=== PATIENT | female | born 1950 | race Caucasian/White ===

== ENCOUNTER 2020-08-18 23:46 | Outpatient (CLI) | payer MEDICARE | END 2020-08-18 23:47 | disposition critical access hospital (66) | LOC: EMS 23:46 | DX: K92.0 Hematemesis (principal); R19.7 Diarrhea, unspecified; R53.1 Weakness | CPT/HCPCS: A0425; A0427 ==

== ENCOUNTER 2020-08-19 00:11 | Inpatient (IN) | payer MEDICARE ==
[2020-08-19] MEDS ORDERED: TRANEXAMIC ACID 1,000 MG in SODIUM CHLORIDE 0.9% 100ML 100 ML IV STA (00:27)
[2020-08-19] MEDS ORDERED: TRANEXAMIC ACID 1,000 MG/10 ML VIAL ONE (00:34)
[2020-08-19 00:53] LABS: BASOPHILS % (AUTO) 0.2 %; EOSINOPHILS % (AUTO) 0.1 %; LYMPHOCYTES # (AUTO) 1.3 10^3/uL (1.5-3.5); LYMPHOCYTES % (AUTO) 7.3 %; MEAN CORPUSCULAR HEMOGLOBIN 31.8 pg (27.0-31.0); MEAN CORPUSCULAR VOLUME 106.1 fL (81.0-99.0); MEAN PLATELET VOLUME 8.9 fL (7.9-10.8); MONOCYTES # (AUTO) 1.2 10^3/uL (0.0-1.0); MONOCYTES % (AUTO) 6.8 %; NEUTROPHILS # (AUTO) 14.4 10^3/uL (1.5-6.6); NEUTROPHILS % (AUTO) 83.6 %; PLT - PLATELET COUNT 430 10^3/uL (130-450); RED BLOOD COUNT 1.32 10^6/uL (4.20-5.40); RED CELL DISTRIBUTION WIDTH 14.5 % (12.0-15.0); WHITE BLOOD COUNT 17.2 x10^3/uL (4.8-10.8)
[2020-08-19 01:04] LABS: ALBUMIN 2.8 g/dL (3.2-5.5); ALBUMIN/GLOBULIN RATIO 1.1 (1.0-2.2); BILIRUBIN,TOTAL 0.6 mg/dL (0.2-1.0); CALCIUM 9.1 mg/dL (8.5-10.3); CREATININE 0.9 mg/dL (0.4-1.0); POTASSIUM 3.6 mmol/L (3.5-5.0); TOTAL PROTEIN 5.3 g/dL (6.7-8.2)
[2020-08-19 01:39] LABS: HGB - HEMOGLOBIN 4.2 g/dL (12.0-16.0)
--- NOTE | 2020-08-19 01:41 | ED Physician Documentation ---
PD HPI NVD - Stated complaint Stated Complaint: N/V/D - Chief complaint Chief Complaint: Abd Pain - History obtained from History obtained from: Patient, EMS - History of Present Illness Timing - onset: How many days ago (2) Timing - duration: Days (2) Timing - details: Gradual onset, Still present Associated symptoms: Near syncope / syncope, Other (diarrhea and vomiting) Contributing factors: Travel, Anticoagulated. No: Recent antibiotics, Alcohol use Improved by: Vomiting, BM Worsened by: Moving Similar symptoms before: Has not had sx before Recently seen: Not recently seen - Additonal information Additional information: 69-year-old female with a history of ulcerative colitis who is on Eliquis for DVT has developed some diarrhea over the past 2 days and today she developed some vomiting and the vomiting this evening appeared to have coffee grounds in it and there appears to be dark diarrhea as well. The patient has developed near syncope and was transported from the home she is visiting by ambulance and IV line was begun and she was given 500 mL of saline with improvement of her blood pressure from 70 over palp to 100. Review of Systems Constitutional: denies: Fever Eyes: denies: Decreased vision Ears: denies: Ear pain Nose: denies: Congestion Throat: denies: Sore throat Cardiac: denies: Chest pain / pressure, Palpitations Respiratory: denies: Dyspnea, Cough GI: reports: Abdominal Pain, Nausea, Vomiting, Diarrhea : denies: Dysuria, Frequency Skin: denies: Rash Musculoskeletal: denies: Neck pain, Back pain, Extremity pain Neurologic: reports: Generalized weakness, Near syncope. denies: Focal weakness, Numbness PD PAST MEDICAL HISTORY - Present Medications Home Medications: Ambulatory Orders Medication Instructions Recorded Confirmed ALPRAZolam [Alprazolam] 0.5 mg PO PRN 08/19/20 Apixaban [Eliquis] 5 mg PO BID 08/19/20 08/19/20 Ascorbic Acid [Vitamin C] 1,000 mg PO DAILY 08/19/20 08/19/20 Atorvastatin Calcium 1 tab PO DAILY 08/19/20 08/19/20 Ergocalciferol (Vitamin D2) 25 mcg PO 08/19/20 [Vitamin D2] Ferrous Sulfate 325 mg PO DAILY 08/19/20 08/19/20 Hydrochlorothiazide 12.5 mg PO DAILY 08/19/20 08/19/20 Liothyronine [Cytomel] 25 mcg PO QDAC 08/19/20 08/19/20 Melatonin 10 mg PO HS 08/19/20 08/19/20 Mesalamine [Lialda] 3.6 gm PO DAILY 08/19/20 08/19/20 Prednisone 10 mg PO 08/19/20 Sertraline HCl 100 mg PO 08/19/20 - Allergies Allergies/Adverse Reactions: Allergies Allergy/AdvReac Type Severity Reaction Status Date / Time No Known Drug Allergies Allergy Verified 08/19/20 00:26 PD ED PE NORMAL - Vitals Vital signs reviewed: Yes (Tachycardic) - General General: Alert and oriented X 3, No acute distress, Well developed/nourished, Other (Pale appearing female who is now interactive and oriented) - HEENT HEENT: Atraumatic, PERRL - Neck Neck: Supple, no meningeal sign, No bony TTP - Cardiac Cardiac: No murmur, Other (Tacky to 120 sitting up) - Respiratory Respiratory: No respiratory distress, Clear bilaterally - Abdomen Abdomen: Normal bowel sounds, Soft, Non distended, No organomegaly, Other (Mild generalized tenderness without guarding or rebound) - Back Back: No CVA TTP, No spinal TTP - Derm Derm: Warm and dry, No rash, Other (Pale skin) - Extremities Extremities: No deformity, No edema - Neuro Neuro: Alert and oriented X 3, first calender 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 2-12 intact, No motor deficit, No sensory deficit, Normal speech Eye Opening: Spontaneous Motor: Obeys Commands Verbal: Oriented GCS Score: 15 - Psych Psych: Normal mood, Normal affect Results - Vitals Vitals: Vital Signs - 24 hr 08/19/20 08/19/20 08/19/20 00:17 00:22 01:43 Temperature 37.7 C 37.7 C 37 C Heart Rate 110 H 110 H 130 H Respiratory 18 18 20 Rate Blood Pressure 107/67 107/67 93/52 L O2 Saturation 100 100 08/19/20 08/19/20 08/19/20 02:00 02:05 02:16 Temperature 36.8 C 36.8 C 36.8 C Heart Rate 111 H 111 H 113 H Respiratory 20 20 18 Rate Blood Pressure 111/61 111/61 115/58 L O2 Saturation 08/19/20 08/19/20 08/19/20 02:22 02:31 03:01 Temperature 36.8 C 36.8 C 36.8 C Heart Rate 111 H 107 H 107 H Respiratory 18 20 20 Rate Blood Pressure 115/58 L 124/64 120/71 O2 Saturation 100 08/19/20 03:22 Temperature 36.7 C Heart Rate 105 H Respiratory 16 Rate Blood Pressure 124/62 O2 Saturation Oxygen O2 Source Room air - Labs Labs: Laboratory Tests 08/19/20 08/19/20 08/19/20 00:44 00:44 00:44 WBC 17.2 H RBC 1.32 L Hgb 4.2 L* Hct 14.0 L* MCV 106.1 H MCH 31.8 H MCHC 30.0 L RDW 14.5 Plt Count 430 MPV 8.9 Neut # (Auto) 14.4 H Lymph # (Auto) 1.3 L [place] # (Auto) 1.2 H Eos # (Auto) 0.0 Baso # (Auto) 0.0 Absolute Nucleated RBC 0.00 Nucleated RBC % 0.0 Sodium 135 Potassium 3.6 Chloride 101 Carbon Dioxide 19 L Anion Gap 15.0 H BUN 38 H Creatinine 0.9 Estimated GFR (MDRD) 62 L Glucose 210 H Calcium 9.1 Total Bilirubin 0.6 AST 15 ALT 17 Alkaline Phosphatase 45 Total Protein 5.3 L Albumin 2.8 L Globulin 2.5 Albumin/Globulin Ratio 1.1 Lipase 25 Blood Type O NEGATIVE Blood Type Recheck Antibody Screen NEGATIVE Crossmatch IS Only See Detail 08/19/20 01:13 WBC RBC Hgb Hct MCV MCH MCHC RDW Plt Count MPV Neut # (Auto) Lymph # (Auto) [place] # (Auto) Eos # (Auto) Baso # (Auto) Absolute Nucleated RBC Nucleated RBC % Sodium Potassium Chloride Carbon Dioxide Anion Gap BUN Creatinine Estimated GFR (MDRD) Glucose Calcium Total Bilirubin AST ALT Alkaline Phosphatase Total Protein Albumin Globulin Albumin/Globulin Ratio Lipase Blood Type Blood Type Recheck O NEGATIVE Antibody Screen Crossmatch IS Only Procedures - IVC sono (time) 0224 Bedside IVC sono: IVC measures (cm) (0.92), Dehydration (est 2 liter deficit) PD MEDICAL DECISION MAKING - ED course Complexity details: reviewed results, re-evaluated patient, considered differential, d/w patient ED course: 69-year-old female with acute GI bleeding arrives to the emergency department in critical condition with tachycardia and hypotension and she has some fluid resuscitation provided and while we are waiting blood her fluids are turned off. She maintains a blood pressure of 113 systolic. She is given a gram of tranexamic acid. As soon as blood was available the patient was administered 2 units simultaneously. She has improvement in color, blood pressure, pulse and interaction. Dr. Valdez general surgery is consulted by phone and will see the patient in consult in the am with likely scoping the following day. Dr. Martinez hospitalist is consulted in the case. - Critical Care Time(min): 44 Comments: Critical care performed on this patient required interruption of all other duties in the emergency department for bedside evaluation and treatment in a time sensitive manner. Time Includes: Direct patient care, Reassess patient, Document care, Coordinate care, Medical consult Data interpretation: Labs, Pulse ox, CXR Departure - Departure Disposition: 66 [facility] DC/Xfer Clinical Impression: Upper GI bleeding
[2020-08-19] MEDS ORDERED: PANTOPRAZOLE 40 MG VIAL IVP STA (02:33)
[2020-08-19] MEDS ORDERED: SODIUM CHLORIDE FLUSH 0.9% 10 ML SYRINGE IVP PRN (03:04)
[2020-08-19] MEDS ORDERED: ACETAMINOPHEN 325 MG TABLET PO PRN (03:04)
[2020-08-19] MEDS ORDERED: ONDANSETRON 4 MG/2 ML VIAL IVP PRN (03:04)
[2020-08-19] MEDS ORDERED: LORazepam 0.5 MG TABLET PO PRN (03:13)
--- NOTE | 2020-08-19 03:21 | HISTORY & PHYSICAL EXAMINATION ---
Chief Complaint - Chief Complaint Chief Complaint: Vomiting with coffee grounds, diarrhea with black stools History of Present Illness - Admitted From Admitted From:: ED - History Obtained From Records Reviewed: ED History obtained from: Patient and ED Physician Exam Limitations: None - History of Present Illness HPI Comment/Other: Patient is a 69-year-old female with a past medical history of ulcerative colitis, diagnosed fall 2019, DVT diagnosed fall 2019 during hospitalization related to ulcerative colitis, hypertension, hyperlipidemia, depression and generalized anxiety disorder who presents to the emergency department with a 2- day history of vomiting and diarrhea with coffee-ground emesis and dark tarry stools. In addition, she has been having mild to moderate cramping of the left lower quadrant. Patient states that she had a shayan prior to all this starting but other than that cannot think of anything that incited this episode. She is not a heavy drinker, has no prior history of GI bleed that she is aware of. And most recently was scoped in fall 2019 when she was hospitalized in [place] for this new diagnosis of ulcerative colitis. She is here visiting from [facility], visiting her mother and sisters who have home and [facility]. She started to have significant fati maricruz and weakness after the 2 days of vomiting and diarrhea so paramedics were called and she was brought to the hospital.In route she was found to be significantly hypotensive and received a 500 mL bolus improving her blood pressure from systolic of 70 over palp to 100 systolic. ED course: Upon arrival in the ED, she was only given a 500 mL bolus in an attempt to avoid worsening the bleeding with hypertension, she was given a 1 g dose of tranexamic acid. Initially heart rates were as high as 130s with blood pressures in the 90s over 60s, but transfusion was initiated eventually receiving 2 units simultaneously in both arms which helped to improve tachycardia with heart rates now in the 100-110 range. Blood pressure improved to the 115's/80 range. Patient has become more alert, and with the exception of feeling fatigued and mild left lower quadrant cramping is doing much better. General surgery was contacted by ED physician who has agreed to consult, Dr. Valdez plans to take the patient for EGD likely on Thursday morning. History - Past Medical History Cardiovascular: reports: Hypertension, High cholesterol, Deep vein thrombosis, Other. denies: Pulmonary embolism Respiratory: reports: None Neuro: reports: None GI: reports: Ulcerative colitis. 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 Living arrangement: At home Living Situation: Alone Social History Notes: Patient is here visiting from [facility] her mother and 2 sisters live on [facility] - Substance History Use: Uses substance without health or social issues: NONE - POLST Patient has POLST: No POLST Status: DNR Meds/Allgy - Home Medications Home Medications: Ambulatory Orders Medication Instructions Recorded Confirmed ALPRAZolam [Alprazolam] 0.5 mg PO PRN 08/19/20 Apixaban [Eliquis] 5 mg PO BID 08/19/20 08/19/20 Ascorbic Acid [Vitamin C] 1,000 mg PO DAILY 08/19/20 08/19/20 Atorvastatin Calcium 1 tab PO DAILY 08/19/20 08/19/20 Ergocalciferol (Vitamin D2) 25 mcg PO 08/19/20 [Vitamin D2] Ferrous Sulfate 325 mg PO DAILY 08/19/20 08/19/20 Hydrochlorothiazide 12.5 mg PO DAILY 08/19/20 08/19/20 Liothyronine [Cytomel] 25 mcg PO QDAC 08/19/20 08/19/20 Melatonin 10 mg PO HS 08/19/20 08/19/20 Mesalamine [Lialda] 3.6 gm PO DAILY 08/19/20 08/19/20 Prednisone 10 mg PO 08/19/20 Sertraline HCl 100 mg PO 08/19/20 - Allergies Allergies/Adverse Reactions: Allergies Allergy/AdvReac Type Severity Reaction Status Date / Time No Known Drug Allergies Allergy Verified 08/19/20 00:26 Review of Systems - Constitutional Constitutional: reports: Fatigue, Malaise, Weakness, Poor appetite. denies: Fever, Chills, Diaphoresis - Cardiovascular Cariovascular: reports: Lightheadedness. denies: Irregular heart rate, Chest pain - Gastrointestinal Gastrointestinal: reports: Abdominal pain, Diarrhea, Change in bowel habits, Black stools, Nausea, Vomiting, Coffee grounds emesis. denies: Abdominal distention, Constipation, Bloody stools, Bile emesis, Leo blood emesis - Hematologic/Lymphatic Hematologic/Lymphatic: reports: Anemia, Blood clots - All Other Systems All Other Systems: reports: Reviewed and negative Prior Level of Functionality: Fully Independent Exam - Vital Signs Reviewed Vital Signs: Yes Vital Signs: Vital Signs x48h Temp Pulse Resp BP Pulse Ox 08/19/20 03:01 36.8 C 107 H 20 120/71 08/19/20 02:31 36.8 C 107 H 20 124/64 08/19/20 02:22 36.8 C 111 H 18 115/58 L 100 08/19/20 02:16 36.8 C 113 H 18 115/58 L 08/19/20 02:05 36.8 C 111 H 20 111/61 08/19/20 02:00 36.8 C 111 H 20 111/61 08/19/20 01:43 37 C 130 H 20 93/52 L 08/19/20 00:22 37.7 C 110 H 18 107/67 100 08/19/20 00:17 37.7 C 110 H 18 107/67 100 - Physical Exam General Appearance: positive: No acute distress, Alert Eyes Bilateral: positive: Normal inspection, No scleral icterus Neck: positive: Nml inspection, Thyroid nml, No JVD Respiratory: positive: Chest non-tender Cardiovascular: positive: Regular rate & rhythm, No murmur, No gallop. negative: Irregularly irregular, Extrasystoles, Tachycardia Abdomen: positive: Non-tender, No organomegaly, Nml bowel sounds Skin: positive: No rash, Warm, Dry, Pallor. negative: Cyanosis, Diaphoresis Extremities: positive: Non-tender, Nml appearance, No pedal edema Neurologic/Psychiatric: positive: Oriented x3, CN's nml (2-12), Motor nml, Sensation nml Conclusion/Plan - Problem List (1) Upper GI bleeding Conclusion/Plan: Patient initially presented to ED in critical condition with hypotension, tachycardia, and severe anemia with hemoglobin 4.2 hematocrit 14.0 Risk is further exacerbated by the patient taking EliquisPrior to admission Stabilized with t acid, 0.5 L bolus, and transfusion 2 units simultaneously Vital signs improved but still mildly tachycardic with heart rates in the 100- 110 range Blood pressure is improved Patient is alert, pallor is improved, and is responding to resuscitation well General surgery consulted, Dr. Valdez assistance greatly appreciated We will admit patient to [facility] Repeat H&H posttransfusion Pending results, monitor serial hemoglobin hematocrit levels Holding anticoagulation Protonix IV BID Full liquid diet for now pending EGD on Thursday then n.p.o. tomorrow night (2) Acute blood loss anemia (ABLA) Conclusion/Plan: As above Monitor hemoglobin hematocrit levels Patient has history of iron deficiency anemia Resume home iron Check iron study in the a.m. Transfuse to maintain hemoglobin greater than 7 (3) Ulcerative colitis Conclusion/Plan: Patient with recently diagnosed UC in fall 2019 Current presentation likely an acute exacerbation Has recently had a flare with prednisone taper at home Will start IV Solu-Medrol 60 mg daily Pending clinical course, if clinically deteriorates may need to be transferred to facility with gastroenterology consultation but otherwise given that she is stable now, would be appropriate to start first-line therapy and pursue GI bleed with general surgery performing EGD Continue home mesalamine Continue Protonix IV twice daily Qualifiers: Digestive disease complication type: other complication (4) Hypertension Conclusion/Plan: Blood pressure soft secondary to GI bleed Hold home hydrochlorothiazide Monitor blood pressures Once bleeding stops, H&H stable, if blood pressure increases then resume home hydrochlorothiazide (5) Hyperlipidemia Conclusion/Plan: Hold home statin pending clinical course given low blood pressures, to avoid any unnecessary stress to liver Resume home statin when stable (6) Hypothyroid Conclusion/Plan: Resume home Cytomel (7) Depression Conclusion/Plan: Stable Resume home Zoloft Resume home Ativan 0.5 mg as needed but used cautiously given recent soft blood pressures and avoid when possible (8) Anxiety Conclusion/Plan: As above, as needed Ativan to be used sparingly given soft blood pressures - Lab Results Lab results reviewed: Yes Errol Bones: 08/19/20 00:44 08/19/20 00:44 Core Measures - Anticipated LOS I expect patient to be DC'd or transferred within 96 hours.: Yes - DVT/VTE - Prophylaxis VTE/DVT Device ordered at admit?: Yes VTE/DVT Prophylaxis med ordered at admit?: No Not Ordered - Medical Reason: Contraindicated
[2020-08-19] MEDS: methylPREDNISolone SUCCINATE 40 MG/ML VIAL IVP SCH ×2 (03:32→08:39)
[2020-08-19 04:20] LABS: B. PARAPERTUSSIS- RESP PCR PAN NOT DETECTED; B. PERTUSSIS- RESP PCR PANEL NOT DETECTED; C. PNEUMONIAE- RESP PCR PANEL NOT DETECTED; CORONAVIRUS 229E-RESP PCR NOT DETECTED; CORONAVIRUS HKU1-RESP PCR NOT DETECTED; CORONAVIRUS NL63-RESP PCR NOT DETECTED; CORONAVIRUS OC43-RESP PCR NOT DETECTED; HUMAN METAPNEUMOVIRUS NOT DETECTED; INFLUENZA A- RESP PCR PANEL NOT DETECTED; INFLUENZA B - RESP PCR PANEL NOT DETECTED; M. PNEUMONIAE- RESP PCR PANEL NOT DETECTED; PARAINFLUENZA VIRUS 1 NOT DETECTED; PARAINFLUENZA VIRUS 2 NOT DETECTED; PARAINFLUENZA VIRUS 3 NOT DETECTED; PARAINFLUENZA VIRUS 4 NOT DETECTED; RHINOVIRUS/ENTEROVIRUS NOT DETECTED; RSV- RESP PCR PANEL NOT DETECTED; SARS-CoV-2 -RESP PCR PANEL NOT DETECTED
[2020-08-19] MEDS: HYDROcod/ACETAM 5/325 MG TABLET PO PRN ×4 (04:57→23:50)
[2020-08-19 05:20] LABS: ABSOLUTE RETICS # AUTO 0.168 10^6/uL (0.020-0.110); HCT - HEMATOCRIT 20.4 % (37.0-47.0); MEAN CORPUSCULAR HEMOGLOBIN 31.8 pg (27.0-31.0); MEAN CORPUSCULAR HGB CONC 33.8 g/dL (32.0-36.0); RED BLOOD COUNT 2.17 10^6/uL (4.20-5.40); RED CELL DISTRIBUTION WIDTH 17.9 % (12.0-15.0); RETICULOCYTE COUNT % (AUTO) 7.75 % (0.5-2.3); WHITE BLOOD COUNT 16.8 x10^3/uL (4.8-10.8)
[2020-08-19 05:22] LABS: HGB - HEMOGLOBIN 6.9 g/dL (12.0-16.0)
[2020-08-19 05:44] LABS: CALCIUM 8.6 mg/dL (8.5-10.3); CREATININE 0.7 mg/dL (0.4-1.0); CRP - C-REACTIVE PROTEIN 5.1 mg/dL (0-1.0); POTASSIUM 3.6 mmol/L (3.5-5.0)
[2020-08-19 05:58] LABS: FERRITIN 191.8 ng/mL (11.0-306.8)
[2020-08-19] MEDS: SODIUM CHLORIDE 0.9% 1,000 ML IV SCH ×2 (06:17→20:26)
[2020-08-19] MEDS ORDERED: LIOTHYRONINE 5 MCG TABLET PO SCH (07:00)
[2020-08-19] MEDS ORDERED: LIOTHYRONINE 25 MCG TABLET PO SCH (07:00)
--- NOTE | 2020-08-19 08:00 | PHARMACY PROGRESS NOTE ---
- Best Possible Medication History Admit Date and Time: 08/19/20 0304 Processed by: Pharmacy Medication History completed: Yes Secondary Source(s): Prescription bottles, Insurance records Medication list updated using medication bottles patient brought to the hospital along with insurance records to confirm fill history. As the person ultimately responsible for medication therapy, providers are able to order a medication from an existing home medication list in [facility] via the "Reconcile Routine" prior to Confirmation of that medication by pit crew support worker. Such practice is discouraged except when the physician, in their clinical judgment, deems that a medical need exists for a medication without regard to previous use.
--- NOTE | 2020-08-19 08:26 | PROVIDER PROGRESS NOTE ---
Hospitalist Cross-cover Note - Cross-Cover Note Cross-Cover Note: Patient was resting comfortably at the time of my exam. She denied any more episodes of emesis or blood in stool. However she reported abdominal cramps. Her vitals had significantly improved and remained stable. Repeat CBC showed a hemoglobin of 6.4. A 3rd unit of packed red blood cells was ordered She is on methylprednisolone and mesalamine. She was seen by Dr. Valdez with general surgery EGD planned for tomorrow afternoon.
[2020-08-19] MEDS: FERROUS SULFATE 325 MG TABLET PO SCH (08:34)
[2020-08-19] MEDS: SERTRALINE 50 MG TABLET PO SCH (08:34)
[2020-08-19] MEDS: SODIUM CHLORIDE FLUSH 0.9% 10 ML SYRINGE IVP SCH ×2 (08:39→16:10)
[2020-08-19] MEDS ORDERED: LEVOTHYROXINE 75 MCG TABLET PO SCH (09:00)
[2020-08-19] MEDS ORDERED: LEVOTHYROXINE 100 MCG TABLET PO SCH (09:00)
[2020-08-19] MEDS: PANTOPRAZOLE 40 MG VIAL IVP SCH ×2 (09:51→21:48)
[2020-08-19] MEDS: MESALAMINE 1.2 GM PO SCH ×3 (09:58→21:48)
[2020-08-19 10:27] LABS: MEAN CORPUSCULAR HEMOGLOBIN 31.5 pg (27.0-31.0); MEAN CORPUSCULAR HGB CONC 32.5 g/dL (32.0-36.0); MEAN PLATELET VOLUME 9.1 fL (7.9-10.8); RED BLOOD COUNT 2.03 10^6/uL (4.20-5.40); RED CELL DISTRIBUTION WIDTH 19.5 % (12.0-15.0); WHITE BLOOD COUNT 15.1 x10^3/uL (4.8-10.8)
[2020-08-19 10:36] LABS: HCT - HEMATOCRIT 19.7 % (37.0-47.0); HGB - HEMOGLOBIN 6.4 g/dL (12.0-16.0)
[2020-08-19] MEDS: LEVOTHYROXINE 100 MCG TABLET PO SCH (11:16)
[2020-08-19] MEDS: LEVOTHYROXINE 75 MCG TABLET PO SCH (11:16)
--- NOTE | 2020-08-19 13:58 | HISTORY & PHYSICAL EXAMINATION ---
Chief Complaint - Chief Complaint Chief Complaint: emesis, weak, and faint yesterday History of Present Illness - Admitted From Admitted From:: ED - History Obtained From Records Reviewed: yes History obtained from: pt Exam Limitations: none - History of Present Illness HPI Comment/Other: She was diagnosed with ulcer colitis last year. She was having loose non bloody bms and was weak. She has history of dvt and takes anticoagulation as well as prednisone for her ulcerative colitis. She denies abdominal pain. She was not taking antacids. Yesterday she had brown emesis and was found to be severely anemic. She is improved after transfusion; however, still feels very weak. 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 Living arrangement: At home Living Situation: Alone Social History Notes: Patient is here visiting from [facility] her mother and 2 sisters live on [facility] - Substance History Use: Uses substance without health or social issues: NONE - POLST Patient has POLST: No POLST Status: DNR Meds/Allgy - Home Medications Home Medications: Ambulatory Orders Medication Instructions Recorded Confirmed ALPRAZolam [Alprazolam] 0.25 - 0.5 mg PO QPM PRN 08/19/20 08/19/20 Apixaban [Eliquis] 5 mg PO BID 08/19/20 08/19/20 Ascorbic Acid [Vitamin C] 1,000 mg PO DAILY 08/19/20 08/19/20 Atorvastatin Calcium 40 mg PO DAILY 08/19/20 08/19/20 Cholecalciferol [Vitamin D3] 25 mcg PO DAILY 08/19/20 08/19/20 Ferrous Sulfate 325 mg PO DAILY 08/19/20 08/19/20 Hydrochlorothiazide 12.5 mg PO DAILY 08/19/20 08/19/20 Levothyroxine Sodium [Euthyrox] 175 mcg PO DAILY 08/19/20 08/19/20 Liothyronine [Cytomel] 12.5 mcg PO QDAC 08/19/20 08/19/20 Melatonin 10 mg PO HS 08/19/20 08/19/20 Mesalamine [Lialda] 3.6 gm PO TID 08/19/20 08/19/20 Prednisone 5 - 20 mg PO DAILY 08/19/20 08/19/20 Sertraline HCl 100 mg PO DAILY 08/19/20 08/19/20 - Allergies Allergies/Adverse Reactions: Allergies Allergy/AdvReac Type Severity Reaction Status Date / Time No Known Drug Allergies Allergy Verified 08/19/20 00:26 Review of Systems - Constitutional Constitutional: reports: Fatigue (10 pt ros as above otherwise unremarkable) Exam - Vital Signs Reviewed Vital Signs: Yes Vital Signs: Vital Signs x48h Temp Pulse Resp BP Pulse Ox 08/19/20 12:10 36.8 C 98 120/50 L 97 08/19/20 07:46 37 C 98 16 116/55 L 94 - Physical Exam General Appearance: positive: No acute distress, Alert Eyes Bilateral: positive: PERRL, EOMI ENT: positive: No signs of dehydration Neck: positive: No JVD Respiratory: positive: No respiratory distress Cardiovascular: positive: Regular rate & rhythm Abdomen: positive: Non-tender, No distention Neurologic/Psychiatric: positive: Oriented x3 Conclusion/Plan - Problem List (1) Acute blood loss anemia (ABLA) Conclusion/Plan: Agree with present care and plan. Plan EGD tomorrow 08/20/2020 late afternoon parq held and verbal consent obtained npo after midnight - Lab Results Lab results reviewed: Yes Fish Bones: 08/19/20 10:05 08/19/20 05:00
[2020-08-19] MEDS ORDERED: MELATONIN 10 MG PO SCH (21:00)
[2020-08-19 21:13] LABS: HCT - HEMATOCRIT 20.5 % (37.0-47.0)
[2020-08-19 21:16] LABS: HGB - HEMOGLOBIN 6.6 g/dL (12.0-16.0)
[2020-08-19] MEDS ORDERED: SODIUM CHLORIDE 0.9% 500 ML IV ONE (23:44)
[2020-08-20] MEDS: SODIUM CHLORIDE FLUSH 0.9% 10 ML SYRINGE IVP SCH ×3 (03:31→16:53)
[2020-08-20 05:49] LABS: HCT - HEMATOCRIT 22.5 % (37.0-47.0); HGB - HEMOGLOBIN 7.3 g/dL (12.0-16.0); MEAN CORPUSCULAR HEMOGLOBIN 30.9 pg (27.0-31.0); MEAN CORPUSCULAR HGB CONC 32.4 g/dL (32.0-36.0); MEAN CORPUSCULAR VOLUME 95.3 fL (81.0-99.0); MEAN PLATELET VOLUME 8.8 fL (7.9-10.8); RED BLOOD COUNT 2.36 10^6/uL (4.20-5.40); RED CELL DISTRIBUTION WIDTH 20.2 % (12.0-15.0); WHITE BLOOD COUNT 14.2 x10^3/uL (4.8-10.8)
[2020-08-20 06:02] LABS: CALCIUM 8.2 mg/dL (8.5-10.3); CREATININE 0.5 mg/dL (0.4-1.0); POTASSIUM 3.4 mmol/L (3.5-5.0)
[2020-08-20] MEDS: LEVOTHYROXINE 100 MCG TABLET PO SCH (07:07)
[2020-08-20] MEDS: LEVOTHYROXINE 75 MCG TABLET PO SCH (07:07)
[2020-08-20] MEDS: MESALAMINE 1.2 GM PO SCH ×3 (07:08→21:29)
[2020-08-20] MEDS: LIOTHYRONINE 25 MCG TABLET PO SCH (08:48)
[2020-08-20] MEDS: FERROUS SULFATE 325 MG TABLET PO SCH (08:49)
[2020-08-20] MEDS: SERTRALINE 50 MG TABLET PO SCH (08:50)
[2020-08-20] MEDS: methylPREDNISolone SUCCINATE 40 MG/ML VIAL IVP SCH (08:51)
[2020-08-20] MEDS: PANTOPRAZOLE 40 MG VIAL IVP SCH ×2 (08:51→21:29)
[2020-08-20] MEDS: HYDROcod/ACETAM 5/325 MG TABLET PO PRN ×3 (09:14→23:43)
[2020-08-20] MEDS: SODIUM CHLORIDE 0.9% 1,000 ML IV SCH ×2 (09:16→23:39)
--- NOTE | 2020-08-20 12:43 | ANESTHESIA ---
Pre-Anesthesia VS, & Labs - Diagnosis anemia, GI bleed - Procedure EGD Vital Signs: Temp Pulse Resp BP Pulse Ox 36.7 C 85 16 108/56 L 96 08/20/20 08:00 08/20/20 08:00 08/20/20 08:00 08/20/20 08:00 08/20/20 09:03 Height: 5 ft 5 in Weight (kg): 82 kg Body Mass Index: 30.0 BMI Classification: Obese - NPO >8 hours - Is Patient ?: No - Lab Results Current Lab Results: Laboratory Tests 08/20/20 05:39: Sodium 139, Potassium 3.4 L, Chloride 107, Carbon Dioxide 23, Anion Gap 9.0, BUN 14, Creatinine 0.5, Estimated GFR (MDRD) 123, Glucose 120 H, Calcium 8.2 L 08/20/20 05:39: WBC 14.2 H, RBC 2.36 L, Hgb 7.3 L, Hct 22.5 L, MCV 95.3, MCH 30.9, MCHC 32.4, RDW 20.2 H, Plt Count 303, MPV 8.8 08/19/20 21:08: Hgb 6.6 L*, Hct 20.5 L 08/19/20 10:05: WBC 15.1 H, RBC 2.03 L, Hgb 6.4 L*, Hct 19.7 L*, MCV 97.0, MCH 31.5 H, MCHC 32.5, RDW 19.5 H, Plt Count 375, MPV 9.1 08/19/20 05:09: WBC 16.8 H, RBC 2.17 L, Hgb 6.9 L*, Hct 20.4 L, MCV 94.0, MCH 31.8 H, MCHC 33.8, RDW 17.9 H, Plt Count 372, MPV 9.0, Reticulocyte % (Auto) 7.75 H, Absolute Retic 0.168 H 08/19/20 05:00: Lactate Dehydrogenase 109 08/19/20 05:00: Ferritin 191.8, Vitamin B12 420 08/19/20 05:00: Sodium 135, Potassium 3.6, Chloride 101, Carbon Dioxide 22, Anion Gap 12.0, BUN 35 H, Creatinine 0.7, Estimated GFR (MDRD) 83 L, Glucose 141 H, Calcium 8.6, Iron 236 H, TIBC 293, % Saturation 81 H, Transferrin 209, C- Reactive Protein 5.1 H 08/19/20 05:00: ESR 23 08/19/20 01:13: Blood Type Recheck O NEGATIVE 08/19/20 00:44: Sodium 135, Potassium 3.6, Chloride 101, Carbon Dioxide 19 L, Anion Gap 15.0 H, BUN 38 H, Creatinine 0.9, Estimated GFR (MDRD) 62 L, Glucose 210 H, Calcium 9.1, Total Bilirubin 0.6, AST 15, ALT 17, Alkaline Phosphatase 45, Total Protein 5.3 L, Albumin 2.8 L, Globulin 2.5, Albumin/Globulin Ratio 1.1, Lipase 25 08/19/20 00:44: WBC 17.2 H, RBC 1.32 L, Hgb 4.2 L*, Hct 14.0 L*, MCV 106.1 H, MC H 31.8 H, MCHC 30.0 L, RDW 14.5, Plt Count 430, MPV 8.9, Neut # (Auto) 14.4 H, Lymph # (Auto) 1.3 L, [place] # (Auto) 1.2 H, Eos # (Auto) 0.0, Baso # (Auto) 0.0, Absolute Nucleated RBC 0.00, Nucleated RBC % 0.0 08/19/20 00:44: Blood Type O NEGATIVE, Antibody Screen NEGATIVE, Crossmatch IS Only See Detail Fish Bones: 08/20/20 05:39 08/20/20 05:39 Home Medications and Allergies Home Medications: Ambulatory Orders ALPRAZolam [Alprazolam] 0.25 - 0.5 mg PO QPM PRN 08/19/20 Apixaban [Eliquis] 5 mg PO BID 08/19/20 Ascorbic Acid [Vitamin C] 1,000 mg PO DAILY 08/19/20 Atorvastatin Calcium 40 mg PO DAILY 08/19/20 Cholecalciferol [Vitamin D3] 25 mcg PO DAILY 08/19/20 Ferrous Sulfate 325 mg PO DAILY 08/19/20 Hydrochlorothiazide 12.5 mg PO DAILY 08/19/20 Levothyroxine Sodium [Euthyrox] 175 mcg PO DAILY 08/19/20 Liothyronine [Cytomel] 12.5 mcg PO QDAC 08/19/20 Melatonin 10 mg PO HS 08/19/20 Mesalamine [Lialda] 3.6 gm PO TID 08/19/20 Prednisone 5 - 20 mg PO DAILY 08/19/20 Sertraline HCl 100 mg PO DAILY 08/19/20 Active Medications Acetaminophen (Acetaminophen 325 Mg Tablet) 650 mg PO Q4HR PRN PRN Reason: Pain 1 to 4 Hydrocodone Bitart/Acetaminophen (Hydrocod/Acetam 5/325 Mg Tablet) 1 tab PO Q4HR PRN PRN Reason: Pain 5 to 7 Last Admin: 08/20/20 09:14 Dose: 1 tab Documented by: Ferrous Sulfate (Ferrous Sulfate 325 Mg Tablet) 325 mg PO DAILYWM [facility] Last Admin: 08/20/20 08:49 Dose: 325 mg Documented by: Sodium Chloride (Normal Saline 0.9%) 1,000 mls @ 100 mls/hr IV .Q10H [facility] Last Infusion: 08/20/20 11:54 Dose: 100 mls/hr Documented by: Levothyroxine Sodium (Levothyroxine 100 Mcg Tablet) 100 mcg PO QDAC [facility] Last Admin: 08/20/20 07:07 Dose: 100 mcg Documented by: Levothyroxine Sodium (Levothyroxine 75 Mcg Tablet) 75 mcg PO QDAC [facility] Last Admin: 08/20/20 07:07 Dose: 75 mcg Documented by: Liothyronine Sodium (Liothyronine 25 Mcg Tablet) 12.5 mcg PO QDAC [facility] Last Admin: 08/20/20 08:48 Dose: 12.5 mcg Documented by: Lorazepam (Lorazepam 0.5 Mg Tablet) 0.5 mg PO BID PRN PRN Reason: Anxiety Methylprednisolone (Methylprednisolone Succinate 40 Mg/Ml Vial) 60 mg IVP DAILY [facility] Last Admin: 08/20/20 08:51 Dose: 60 mg Documented by: Ondansetron HCl (Ondansetron 4 Mg/2 Ml Vial) 4 mg IVP Q6HR PRN PRN Reason: Nausea / Vomiting Pantoprazole Sodium (Pantoprazole 40 Mg Vial) 40 mg IVP BID [facility] Last Admin: 08/20/20 08:51 Dose: 40 mg Documented by: Mesalamine [Lialda] (1.[address] Tab) 3 each PO TID [facility] Last Admin: 08/20/20 07:08 Dose: 3 each Documented by: Sertraline HCl (Sertraline 50 Mg Tablet) 100 mg PO DAILY [facility] Last Admin: 08/20/20 08:50 Dose: 100 mg Documented by: Sodium Chloride (Sodium Chloride Flush 0.9% 10 Ml Syringe) 10 ml IVP PRN PRN PRN Reason: NEEDED PER PROVIDER ORDERS Last Admin: 08/20/20 03:31 Dose: 10 ml Documented by: Sodium Chloride (Sodium Chloride Flush 0.9% 10 Ml Syringe) 10 ml IVP 0100,0900,1700 [facility] Last Admin: 08/20/20 08:59 Dose: Not Given Documented by: ALPRAZolam [Alprazolam] 0.25 - 0.5 mg PO QPM PRN 08/19/20 Apixaban [Eliquis] 5 mg PO BID 08/19/20 Ascorbic Acid [Vitamin C] 1,000 mg PO DAILY 08/19/20 Atorvastatin Calcium 40 mg PO DAILY 08/19/20 Cholecalciferol [Vitamin D3] 25 mcg PO DAILY 08/19/20 Ferrous Sulfate 325 mg PO DAILY 08/19/20 Hydrochlorothiazide 12.5 mg PO DAILY 08/19/20 Levothyroxine Sodium [Euthyrox] 175 mcg PO DAILY 08/19/20 Liothyronine [Cytomel] 12.5 mcg PO QDAC 08/19/20 Melatonin 10 mg PO HS 08/19/20 Mesalamine [Lialda] 3.6 gm PO TID 08/19/20 Prednisone 5 - 20 mg PO DAILY 08/19/20 Sertraline HCl 100 mg PO DAILY 08/19/20 Allergies/Adverse Reactions: Allergies Allergy/AdvReac Type Severity Reaction Status Date / Time No Known Drug Allergies Allergy Verified 08/19/20 00:26 Anes History & Medical History - Anesthetic History Anesthesia Complications: reports: No previous complications Family history of Anesthesia Complications: Denies Family history of Malignant Hyperthermia: Denies - Medical History Cardiovascular: reports: Hypertension, High cholesterol, Deep vein thrombosis, Other (Hx of Takotsubo cardiomyopathy, now respolved) Pulmonary: reports: None Gastrointestinal: reports: Ulcerative colitis Neuro: reports: None Musculoskeletal: reports: Osteoarthritis Endocrine/Autoimmune: reports: HyPERthyroidism Smoking Status: Former smoker Other Past Medical History: Broken Heart Syndrome - Surgical History General: reports: Cholecystectomy Gynecologic: reports: section Orthopedic: reports: Hip replacement Exam General: Alert, Oriented x3, Cooperative Dental: WNL Mouth Openin Fingerbreadth Neck Mobility: Normal Mallampati classification: II Thyromental Distance: 4-6 cm Respiratory: Lungs clear Cardiovascular: Regular rate Plan Anesthesia Type: General, Total IV Consent for Procedure(s) Verified and Reviewed: Yes Code Status: Do Not Attempt Resuscitation ASA classification: 3-Severe systemic disease Is this case an emergency?: No
--- NOTE | 2020-08-20 13:28 | PROVIDER PROGRESS NOTE ---
Assessment/Plan - Problem List (1) Upper GI bleeding Assessment/Plan: Etiology undetermined. Patient is currently n.p.o. EGD planned for later this afternoon. Will await findings from EGD. Patient is on Protonix IV twice daily. (2) Ulcerative colitis Qualifiers: Digestive disease complication type: other complication Assessment/Plan: Patient has not had any episodes of bloody stool since admission. On methylprednisolone 60 mg IV daily. On mesalamine 3 times daily. Patient will follow up with GI in outpatient setting upon discharge (3) Acute blood loss anemia (ABLA) Assessment/Plan: Secondary to upper GI bleed. Patient was transfused 4 units of red blood cells. Hemoglobin is currently 7.3. Will transfuse another unit of packed red blood cells later today. EGD pending for later today. (4) Anxiety Assessment/Plan: Ativan as needed. (5) Depression Assessment/Plan: On Zoloft. (6) Hyperlipidemia Assessment/Plan: On zoloft (7) Hypertension Assessment/Plan: Patient's blood pressure is currently on the lower end of normal (SBP 108). Will continue to hold antihypertensives while working up/ treating for GI bleed Continue IV hydration with normal saline at 100 mils per hour. Continue blood transfusion as/when indicated. (8) Hypothyroid Assessment/Plan: On levothyroxine 175mcg qdAC - Current Meds Current Meds: Current Medications Generic Name Dose Route Start Last Admin Trade Name Freq PRN Reason Stop Dose Admin Hydrocodone Bitart/Acetaminophen 1 tab 08/19/20 03:04 08/20/20 09:14 Hydrocod/Acetam 5/325 Mg Tablet PO 1 tab Q4HR PRN Administration Pain 5 to 7 Ferrous Sulfate 325 mg 08/19/20 08:00 08/20/20 08:49 Ferrous Sulfate 325 Mg Tablet PO 325 mg DAILYWM JESSICA Administration Sodium Chloride 1,000 mls @ 100 mls/hr 08/19/20 04:00 08/20/20 11:54 Normal Saline 0.9% IV 100 mls/hr .Q10H JESSICA Infusion Levothyroxine Sodium 100 mcg 08/19/20 11:00 08/20/20 07:07 Levothyroxine 100 Mcg Tablet PO 100 mcg QDAC JESSICA Administration Levothyroxine Sodium 75 mcg 08/19/20 11:00 08/20/20 07:07 Levothyroxine 75 Mcg Tablet PO 75 mcg QDAC JESSICA Administration Liothyronine Sodium 12.5 mcg 08/20/20 07:00 08/20/20 08:48 Liothyronine 25 Mcg Tablet PO 12.5 mcg QDAC JESSICA Administration Methylprednisolone 60 mg 08/19/20 03:11 08/20/20 08:51 Methylprednisolone Succinate 40 Mg/Ml Vial IVP 60 mg DAILY JESSICA Administration Pantoprazole Sodium 40 mg 08/19/20 09:00 08/20/20 08:51 Pantoprazole 40 Mg Vial IVP 40 mg BID JESSICA Administration Mesalamine [Lialda] 3 each 08/19/20 09:00 08/20/20 07:[address] Tab PO 3 each TID JESSICA Administration Sertraline HCl 100 mg 08/19/20 09:00 08/20/20 08:50 Sertraline 50 Mg Tablet PO 100 mg DAILY JESSICA Administration Sodium Chloride 10 ml 08/19/20 03:04 08/20/20 03:31 Sodium Chloride Flush 0.9% 10 Ml Syringe IVP 10 ml PRN PRN Administration NEEDED PER PROVIDER ORDERS Sodium Chloride 10 ml 08/19/20 09:00 08/20/20 08:59 Sodium Chloride Flush 0.9% 10 Ml Syringe IVP Not Given 0100,0900,1700 JESSICA - Lab Result Fish Bone Diagrams: 08/20/20 05:39 08/20/20 05:39 - Additional Planning My Orders: My Active Orders 08/19/20 13:45 Transfuse RBCs Leukoreduced [RC] .ONCE Subjective - Subjective Patient Reports: Other (Patient resting comfortably in bed. Reports some abdominal cramps. Denies any further emesis or blood in stool. Reports flatulence. Denies any other complaints) Objective Vital Signs: Vital Signs - 24 hr 08/19/20 08/19/20 08/19/20 16:00 17:43 17:48 Temperature 36.8 C 37.2 C 37.1 C Heart Rate 101 H 103 H Heart Rate [ 97 Brachial] Respiratory 20 15 16 Rate Blood Pressure 127/57 L 117/56 L Blood Pressure 111/56 L [Right Brachial artery] O2 Saturation 94 08/19/20 08/19/20 08/19/20 17:58 20:00 20:01 Temperature 37.2 C 36.4 C L 37.1 C Heart Rate 105 H 105 H Heart Rate [ 104 H Brachial] Respiratory 16 20 18 Rate Blood Pressure 118/53 L 102/54 L Blood Pressure 110/60 [Right Brachial artery] O2 Saturation 97 08/20/20 08/20/20 08/20/20 00:25 00:45 03:20 Temperature 36.7 C 36.9 C 36.8 C Heart Rate 97 87 91 Heart Rate [ Brachial] Respiratory 18 18 18 Rate Blood Pressure 102/47 L 114/53 L 112/59 L Blood Pressure [Right Brachial artery] O2 Saturation 98 08/20/20 08/20/20 08/20/20 05:00 08:00 09:03 Temperature 36.8 C 36.7 C Heart Rate Heart Rate [ 89 85 Brachial] Respiratory 16 16 Rate Blood Pressure Blood Pressure 105/50 L 108/56 L [Right Brachial artery] O2 Saturation 97 93 96 Oxygen O2 Source Room air I&O (Last 24 Hrs): Intake and Output Totals x24h 08/18/20 08/19/20 08/20/20 23:59 23:59 23:59 Intake Total 4210.000 1360.000 Output Total 2375 Balance 3812.584 8618.000 General: Alert, Oriented x3, Mild distress HEENT: PERRLA, EOMI Neck: Supple, No JVD Neuro: Alert, Non Focal, Oriented Times 3 Cardiovascular: Regular rate, Other (Systolic murmur) Respiratory: Chest non-tender, No respiratory distress, Breath sounds nml Abdomen: Normal bowel sounds, Soft Extremities: No clubbing, No cyanosis, No edema, No tenderness/swelling Skin: No rashes, No breakdown, No significant lesion - Results Results: Laboratory Results WBC 14.2 x10^3/uL (4.8-10.8) H 08/20/20 05:39 RBC 2.36 10^6/uL (4.20-5.40) L 08/20/20 05:39 Hgb 7.3 g/dL (12.0-16.0) L 08/20/20 05:39 Hct 22.5 % (37.0-47.0) L 08/20/20 05:39 MCV 95.3 fL (81.0-99.0) 08/20/20 05:39 MCH 30.9 pg (27.0-31.0) 08/20/20 05:39 MCHC 32.4 g/dL (32.0-36.0) 08/20/20 05:39 RDW 20.2 % (12.0-15.0) H 08/20/20 05:39 Plt Count 303 10^3/uL (130-450) 08/20/20 05:39 MPV 8.8 fL (7.9-10.8) 08/20/20 05:39 Reticulocyte % (Auto) 7.75 % (0.5-2.3) H 08/19/20 05:09 Neut # (Auto) 14.4 10^3/uL (1.5-6.6) H 08/19/20 00:44 Lymph # (Auto) 1.3 10^3/uL (1.5-3.5) L 08/19/20 00:44 [place] # (Auto) 1.2 10^3/uL (0.0-1.0) H 08/19/20 00:44 Eos # (Auto) 0.0 10^3/uL (0.0-0.7) 08/19/20 00:44 Baso # (Auto) 0.0 10^3/uL (0.0-0.1) 08/19/20 00:44 Absolute Nucleated RBC 0.00 x10^3/uL 08/19/20 00:44 Nucleated RBC % 0.0 /100WBC 08/19/20 00:44 ESR 23 mm/Hr (0-30) 08/19/20 05:00 Absolute Retic 0.168 10^6/uL (0.020-0.110) H 08/19/20 05:09 Sodium 139 mmol/L (135-145) 08/20/20 05:39 Potassium 3.4 mmol/L (3.5-5.0) L 08/20/20 05:39 Chloride 107 mmol/L (101-111) 08/20/20 05:39 Carbon Dioxide 23 mmol/L (21-32) 08/20/20 05:39 Anion Gap 9.0 (6-13) 08/20/20 05:39 BUN 14 mg/dL (6-20) 08/20/20 05:39 Creatinine 0.5 mg/dL (0.4-1.0) 08/20/20 05:39 Estimated GFR (MDRD) 123 (>89) 08/20/20 05:39 Glucose 120 mg/dL (70-100) H 08/20/20 05:39 Calcium 8.2 mg/dL (8.5-10.3) L 08/20/20 05:39 Iron 236 ug/dL (28-170) H 08/19/20 05:00 TIBC 293 ug/dL (250-450) 08/19/20 05:00 % Saturation 81 % (20-50) H 08/19/20 05:00 Transferrin 209 mg/dL (192-382) 08/19/20 05:00 Ferritin 191.8 ng/mL (11.0-306.8) 08/19/20 05:00 Total Bilirubin 0.6 mg/dL (0.2-1.0) 08/19/20 00:44 AST 15 IU/L (10-42) 08/19/20 00:44 ALT 17 IU/L (10-60) 08/19/20 00:44 Alkaline Phosphatase 45 IU/L (42-121) 08/19/20 00:44 Lactate Dehydrogenase 109 IU/L (91-225) 08/19/20 05:00 C-Reactive Protein 5.1 mg/dL (0-1.0) H 08/19/20 05:00 Total Protein 5.3 g/dL (6.7-8.2) L 08/19/20 00:44 Albumin 2.8 g/dL (3.2-5.5) L 08/19/20 00:44 Globulin 2.5 g/dL (2.1-4.2) 08/19/20 00:44 Albumin/Globulin Ratio 1.1 (1.0-2.2) 08/19/20 00:44 Lipase 25 U/L (22-51) 08/19/20 00:44 Vitamin B12 420 pg/mL (180-914) 08/19/20 05:00 Nasal Adenovirus (PCR) NOT DETECTED 08/19/20 03:16 Nasal B. parapertussis DNA (PCR) NOT DETECTED 08/19/20 03:16 Nasal Coronavir 229E PCR NOT DETECTED 08/19/20 03:16 Nasal Coronavir HKU1 PCR NOT DETECTED 08/19/20 03:16 Nasal Coronavir NL63 PCR NOT DETECTED 08/19/20 03:16 Nasal Coronavir OC43 PCR NOT DETECTED 08/19/20 03:16 Nasal Enterovir/Rhinovir PCR NOT DETECTED 08/19/20 03:16 Nasal Influenza B PCR NOT DETECTED 08/19/20 03:16 Nasal Influenza A PCR NOT DETECTED 08/19/20 03:16 Nasal Parainfluen 1 PCR NOT DETECTED 08/19/20 03:16 Nasal Parainfluen 2 PCR NOT DETECTED 08/19/20 03:16 Nasal Parainfluen 3 PCR NOT DETECTED 08/19/20 03:16 Nasal Parainfluen 4 PCR NOT DETECTED 08/19/20 03:16 Nasal RSV (PCR) NOT DETECTED 08/19/20 03:16 Nasal B.pertussis DNA PCR NOT DETECTED 08/19/20 03:16 Nasal C.pneumoniae (PCR) NOT DETECTED 08/19/20 03:16 Dorian Human Metapneumo PCR NOT DETECTED 08/19/20 03:16 Nasal M.pneumoniae (PCR) NOT DETECTED 08/19/20 03:16 Nasal SARS-CoV-2 (PCR) NOT DETECTED 08/19/20 03:16 Blood Type O NEGATIVE 08/19/20 00:44 Blood Type Recheck O NEGATIVE 08/19/20 01:13 Antibody Screen NEGATIVE 08/19/20 00:44 Crossmatch IS Only See Detail 08/19/20 00:44 ABX Reporting Has patient been on IV antibiotics over the past 48 hours?: No
[2020-08-20] MEDS ORDERED: SUCCINYLCHOLINE 200 MG/10 ML VIAL ONE (15:19)
[2020-08-20] MEDS ORDERED: PROPOFOL 200 MG/20 ML VIAL IVP ONE (15:20)
[2020-08-20] MEDS ORDERED: LIDOCAINE-MPF 2% 5 ML VIAL ONE (15:20)
[2020-08-20] MEDS ORDERED: fentaNYL 100 MCG/2 ML VIAL ONE (15:21)
[2020-08-20] MEDS ORDERED: ONDANSETRON 4 MG/2 ML VIAL ONE (15:21)
[2020-08-20] MEDS ORDERED: MIDAZOLAM 2 MG/2 ML VIAL ONE (15:21)
--- NOTE | 2020-08-20 15:58 | OPERATIVE REPORT ---
Operative Report - General Admit Date: 08/19/20 Procedure Date: 08/20/20 Planned Procedure: egd Pre-Op Diagnosis: blood loss anemia Procedure Performed: egd Post Op Diagnosis: normal upper endoscopy - Procedure Note Primary Surgeon: hannah yoo Anesthesia Technique: General ET tube Pathology: none Findings: normal upper endoscopy. no gastritis or ulcers
--- NOTE | 2020-08-20 16:01 | PROVIDER PROGRESS NOTE ---
Subjective - Subjective Pt reports feeling: No change (no bm . no n /v) Objective - Vital Signs/Intake & Output Reviewed Vital Signs: Yes Vital Signs: Vital Signs x48h Temp Pulse Resp BP Pulse Ox 08/20/20 09:03 96 08/20/20 08:00 36.7 C 85 16 108/56 L 93 Intake & Output: Intake & Output 08/17/20 08/18/20 08/19/20 08/20/20 23:59 23:59 23:59 23:59 Intake Total 4210.000 1360.000 Output Total 2375 Balance 2696.057 2536.000 - Objective General Appearance: positive: No acute distress, Alert ENT: positive: No signs of dehydration Neck: positive: No JVD Respiratory: positive: No respiratory distress Abdomen: positive: Non-tender, No distention Neurologic/Psychiatric: positive: Oriented x3 - Lab Results Fish Bones: 08/20/20 05:39 08/20/20 05:39 Other Labs: Lab Results x24hrs 08/20/20 08/20/20 08/19/20 Range/Units 05:39 05:39 21:08 WBC 14.2 H (4.8-10.8) x10^3/uL RBC 2.36 L (4.20-5.40) 10^6/uL Hgb 7.3 L 6.6 L* (12.0-16.0) g/dL Hct 22.5 L 20.5 L (37.0-47.0) % MCV 95.3 (81.0-99.0) fL MCH 30.9 (27.0-31.0) pg MCHC 32.4 (32.0-36.0) g/dL RDW 20.2 H (12.0-15.0) % Plt Count 303 (130-450) 10^3/uL MPV 8.8 (7.9-10.8) fL Sodium 139 (135-145) mmol/L Potassium 3.4 L (3.5-5.0) mmol/L Chloride 107 (101-111) mmol/L Carbon Dioxide 23 (21-32) mmol/L Anion Gap 9.0 (6-13) BUN 14 (6-20) mg/dL Creatinine 0.5 (0.4-1.0) mg/dL Estimated GFR (MDRD) 123 (>89) Glucose 120 H (70-100) mg/dL Calcium 8.2 L (8.5-10.3) mg/dL Blood Type Antibody Screen Crossmatch IS Only 08/19/20 Range/Units 00:44 WBC (4.8-10.8) x10^3/uL RBC (4.20-5.40) 10^6/uL Hgb (12.0-16.0) g/dL Hct (37.0-47.0) % MCV (81.0-99.0) fL MCH (27.0-31.0) pg MCHC (32.0-36.0) g/dL RDW (12.0-15.0) % Plt Count (130-450) 10^3/uL MPV (7.9-10.8) fL Sodium (135-145) mmol/L Potassium (3.5-5.0) mmol/L Chloride (101-111) mmol/L Carbon Dioxide (21-32) mmol/L Anion Gap (6-13) BUN (6-20) mg/dL Creatinine (0.4-1.0) mg/dL Estimated GFR (MDRD) (>89) Glucose (70-100) mg/dL Calcium (8.5-10.3) mg/dL Blood Type O NEGATIVE Antibody Screen NEGATIVE Crossmatch IS Only See Detail - Diagnostic Imaging Diagnostic Imaging Comments: normal egd Assessment/Plan - Problem List (1) Acute blood loss anemia (ABLA) Impression: normal upper endoscopy. diet of choice. if she has recurrent abdominal discomfort/ n/v recommend ct scan with contrast to help exclude crohns. 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
[2020-08-20] MEDS ORDERED: LACTATED RINGERS 1,000 ML IV ONE (16:09)
[2020-08-20] MEDS ORDERED: ONDANSETRON 4 MG/2 ML VIAL IVP PRN (16:24)
[2020-08-20] MEDS ORDERED: ATROPINE ABBOJECT 1 MG/10 ML SYRINGE IVP PRN (16:24)
[2020-08-20] MEDS ORDERED: ePHEDrine 50 MG/ML VIAL IVP PRN (16:24)
[2020-08-20] MEDS ORDERED: HYDROmorphone 0.5 MG/0.5 ML SYRINGE IVP PRN (16:24)
[2020-08-20] MEDS ORDERED: fentaNYL 100 MCG/2 ML VIAL IVP PRN (16:24)
[2020-08-20] MEDS ORDERED: MORPHINE 2 MG/ML CARPUJECT IVP PRN (16:24)
[2020-08-20] MEDS ORDERED: NALOXONE 0.4 MG/ML VIAL IVP PRN (16:24)
--- NOTE | 2020-08-20 16:24 | ANESTHESIA POST OP EVALUATION ---
Anesthesia Post Eval - Post Anesthesia Eval Vitals: Last Vital Signs Temp 37.7 C 08/20/20 16:06 Pulse 111 H 08/20/20 16:20 Resp 16 08/20/20 16:20 BP 132/76 H 08/20/20 16:20 Pulse Ox 95 08/20/20 16:20 CV Function Including HR & BP: Stable Pain Control: Satisfactory Nausea & Vomiting: Negative Mental Status: Baseline Respiratory Status: Airway Patent Hydration Status: Satisfactory Anesthesia Complications: None
[2020-08-20] MEDS ORDERED: LACTATED RINGERS 1,000 ML IV SCH (17:00)
[2020-08-21 04:52] LABS: HCT - HEMATOCRIT 25.8 % (37.0-47.0); HGB - HEMOGLOBIN 8.3 g/dL (12.0-16.0); MEAN CORPUSCULAR HEMOGLOBIN 31.3 pg (27.0-31.0); MEAN CORPUSCULAR HGB CONC 32.2 g/dL (32.0-36.0); MEAN CORPUSCULAR VOLUME 97.4 fL (81.0-99.0); RED BLOOD COUNT 2.65 10^6/uL (4.20-5.40); RED CELL DISTRIBUTION WIDTH 21.1 % (12.0-15.0)
[2020-08-21 05:02] LABS: CREATININE 0.5 mg/dL (0.4-1.0); POTASSIUM 3.4 mmol/L (3.5-5.0)
[2020-08-21] MEDS: LEVOTHYROXINE 75 MCG TABLET PO SCH (06:25)
[2020-08-21] MEDS: LEVOTHYROXINE 100 MCG TABLET PO SCH (06:25)
[2020-08-21] MEDS: MESALAMINE 1.2 GM PO SCH ×2 (06:25→13:32)
[2020-08-21] MEDS: LIOTHYRONINE 25 MCG TABLET PO SCH (06:26)
[2020-08-21] MEDS: HYDROcod/ACETAM 5/325 MG TABLET PO PRN (06:30)
[2020-08-21] MEDS: methylPREDNISolone SUCCINATE 40 MG/ML VIAL IVP SCH (09:15)
[2020-08-21] MEDS: SERTRALINE 50 MG TABLET PO SCH (09:15)
[2020-08-21] MEDS: FERROUS SULFATE 325 MG TABLET PO SCH (09:15)
[2020-08-21] MEDS: PANTOPRAZOLE 40 MG VIAL IVP SCH (09:16)
[2020-08-21] MEDS ORDERED: POTASSIUM CHLORIDE 20 MEQ TABLET PO ONE (09:19)
[2020-08-21] MEDS: SODIUM CHLORIDE FLUSH 0.9% 10 ML SYRINGE IVP SCH (09:35)
--- NOTE | 2020-08-21 11:22 | Discharge Plan ---
Discharge Plan Problem Reviewed?: Yes Disposition: Home, Self Care Condition: Stable Diet: Regular Activity Restrictions: Activity as Tolerated Shower Restrictions: No (fall precaution) Instruction Topics: Bleeding Gastrointestinal, Colitis Ulcerative Health Concerns: GI bleeding Plan of Treatment: You were found to have dark tarry stools and had one unit of blood transfusion at hospital. you had EGD done at hospital which found you have normal EGD. Now your HGB continue stable and increased. You may hold your Eliquis now for your GI bleeding, and followup with your PCP to discuss the further management of your Eliquis, and you may followup with your PCP to recheck your HGB level on one week. You may followup with your GI for ulcerative colitis. Your ferrous level is high now, your home iron pill is hold. Care Goals: stabilization and improvement of your medical conditions. Assessment: discussed the care plan with you, answered your questions, and you understood. Additional Instructions or Follow Up instructions: You may followup with your PCP at one week, and recheck your HGB. You may followup with your GI as out-pt. Should your symptoms return or worsen, you may present to ER or call 911 for help. No Smoking: If you smoke, Please STOP! Call for help.
--- NOTE | 2020-08-21 11:37 | DISCHARGE SUMMARY ---
"Discharge Summary Admit Date: 08/19/20 Discharge Date: 08/21/20 Discharging Provider: Agustin Clarke Condition at Discharge: Stable Discharge Disposition: 01 Home, Self Care Discharge Facility Name: home - DIAGNOSES Discharge Diagnoses with Status of Each Condition: (1) Upper GI bleeding EGD done at hospital show totally normal. pt's HGB continue increased. pt denies abdominal pain. pt took Eliquis in the home, also pt has hx of ulcerative colitis since diagnosis from last year. Now her Eliquis is holding. pt report she had colonoscopy on 2019 at [place] in which she was found to have ulcerative colitis otherwise it was unremarkable. At this point, because pt had normal EGD, HGB continue stable and increased, pt is totally asymptotic with Hemodynamically stable. No PPI is prescribed for pt now. It is high possible that pt's GI bleed was caused by ulcerative colitis and fastened by taking of Eliquis. resume home meds Mesalamine and prednisone, Hold her Eliquis, followup with Her GI as out- pt. Pt state she will see her GI immediately after she return to home. pt really want to be d/c to home today. (2) Ulcerative colitis stable. pt denies any abdominal pain or cramping. she ate 100% her diet without nausea, vomiting or diarrhea. resume home meds, and follow up with GI in outpatient setting upon discharge (3) Acute blood loss anemia (ABLA) pt is Hemodynamically stable. HGB is stable and steadily increase her HGB from 7.3 to 8.3 to 8.7. pt is totally asymptotic for her anemia. Follow-up with her PCP to recheck hemoglobin in 1 week and management her anemia. pt had higher than normal of ferrous now, her home iron pill is holding. (4) Anxiety stable (5) Depression stable (6) Hyperlipidemia stable (7) Hypertension stable (8) Hypothyroid TSH is normal, resume home meds - [facility] History of Present Illness: refer from Dr. Martinez's HPI on 08/19/20 Patient is a 69-year-old female with a past medical history of ulcerative colitis, diagnosed fall 2019, DVT diagnosed fall 2019 during hospitalization related to ulcerative colitis, hypertension, hyperlipidemia, depression and generalized anxiety disorder who presents to the emergency department with a 2- day history of vomiting and diarrhea with coffee-ground emesis and dark tarry stools. In addition, she has been having mild to moderate cramping of the left lower quadrant. Patient states that she had a shayan prior to all this starting but other than that cannot think of anything that incited this episode. She is not a heavy drinker, has no prior history of GI bleed that she is aware of. And most recently was scoped in fall 2019 when she was hospitalized in [place] for this new diagnosis of ulcerative colitis. She is here visiting from [facility], visiting her mother and sisters who have home and [facility]. She started to have significant fatigue and weakness after the 2 days of vomiting and diarrhea so paramedics were called and she was brought to the hospital.In route she was found to be significantly hypotensive and received a 500 mL bolus improving her blood pressure from systolic of 70 over palp to 100 systolic. ED course: Upon arrival in the ED, she was only given a 500 mL bolus in an attempt to avoid worsening the bleeding with hypertension, she was given a 1 g dose of tranexamic acid. Initially heart rates were as high as 130s with blood pressures in the 90s over 60s, but transfusion was initiated eventually receiving 2 units simultaneously in both arms which helped to improve tachycardia with heart rates now in the 100-110 range. Blood pressure improved to the 115's/80 range. Patient has become more alert, and with the exception of feeling fatigued and mild left lower quadrant cramping is doing much better. General surgery was contacted by ED physician who has agreed to consult, Dr. Valdez plans to take the patient for EGD likely on Thursday. - CONSULTS | PROCEDURES Consultations: Dr. Valdez Procedures: EGD - HOSPITAL COURSE Hospital Course: Patient was admitted for GI bleed with Vomiting with coffee grounds, diarrhea with black stools. initially pt had tachycardia, and low blood pressure. pt had total 5 units of blood transfusion. pt had EGD done by GI surgeon Dr. Valdez. EGD is normal per Dr. Valdez's report. Pt's HGB is stable and steadily i ncreased. pt tolerated diet without nausea, vomiting, diarrhea. pt has no abdominal cramping, or abdominal pain. Patient is discharged as hemodynamic stable condition. - ALLERGIES Allergies/Adverse Reactions: Allergies Allergy/AdvReac Type Severity Reaction Status Date / Time No Known Drug Allergies Allergy Verified 08/19/20 00:26 - MEDICATIONS Home Medications: Ambulatory Orders Medication Instructions Recorded Confirmed ALPRAZolam [Alprazolam] 0.25 - 0.5 mg PO QPM PRN 08/19/20 08/19/20 Ascorbic Acid [Vitamin C] 1,000 mg PO DAILY 08/19/20 08/19/20 Atorvastatin Calcium 40 mg PO DAILY 08/19/20 08/19/20 Cholecalciferol [Vitamin D3] 25 mcg PO DAILY 08/19/20 08/19/20 Hydrochlorothiazide 12.5 mg PO DAILY 08/19/20 08/19/20 Levothyroxine Sodium [Euthyrox] 175 mcg PO DAILY 08/19/20 08/19/20 Liothyronine [Cytomel] 12.5 mcg PO QDAC 08/19/20 08/19/20 Melatonin 10 mg PO HS 08/19/20 08/19/20 Mesalamine [Lialda] 3.6 gm PO TID 08/19/20 08/19/20 Prednisone 5 - 20 mg PO DAILY 08/19/20 08/19/20 Sertraline HCl 100 mg PO DAILY 08/19/20 08/19/20 - PHYSICAL EXAM AT DISCHARGE General Appearance: positive: No acute distress, Alert. negative: Lethargic Eyes Bilateral: positive: Normal inspection, PERRL, No lid inflammation ENT: positive: ENT inspection nml, No signs of dehydration. negative: Purulent nasal drainage Neck: positive: Nml inspection, Trachea midline. negative: Thyromegaly, Tracheal deviation Respiratory: positive: Chest non-tender, No respiratory distress, Breath sounds nml. negative: Wheezes, Rales Cardiovascular: positive: Regular rate & rhythm, No murmur. negative: Tachycardia, Bradycardia, Systolic murmur, Diastolic murmur Peripheral Pulses: positive: 2+ Abdomen: positive: Non-tender, Nml bowel sounds, No distention. negative: Tende rness Back: positive: Nml inspection Skin: positive: Color nml, Warm, Dry. negative: Cyanosis, Diaphoresis, Pallor Extremities: positive: Non-tender, Full ROM, Nml appearance. negative: Calf tenderness Neurologic/Psychiatric: positive: Oriented x3, Motor nml, Sensation nml, Mood/affect nml. negative: Weakness, Sensory loss, Facial droop, Slurred/abnml speech, Depressed mood/affect - LABS Result Diagrams: 08/21/20 11:10 08/21/20 04:45 - FOLLOW UP Follow Up: You were found to have dark tarry stools and had 5 units of blood transfusion at hospital. you had EGD done at hospital which found you have normal EGD. Now your HGB continue stable and increased. You may hold your Eliquis now for your GI bleeding, and followup with your PCP to discuss the further management of your Eliquis, and you may followup with your PCP to recheck your HGB level on one week. You may followup with your GI for ulcerative colitis. Your ferrous level is high now, your home iron pill is hold. You may followup with your PCP at one week, and recheck your HGB. You may followup with your GI as out-pt. Should your symptoms return or worsen, you may present to ER or call 911 for help. - TIME SPENT Time Spent in Discharge (Minutes): 30"
[2020-08-21 11:47] VITALS: BP 126/73
== END 2020-08-21 14:29 | disposition home or self-care (01) | DRG 813 ==
LOC: ED 00:11 → MS2 03:04
PROVIDERS: ADMIT Family Medicine Sports Medicine; ATTEND Nurse Practitioner Gerontology
PROC: 30233N1 Transfusion of Nonautologous Red Blood Cells into Peripheral Vein, Percutaneous Approach (ICD-10-PCS; 2020-08-19)
PROC: 30233N1 Transfusion of Nonautologous Red Blood Cells into Peripheral Vein, Percutaneous Approach (ICD-10-PCS; 2020-08-20)
PROC: 0DJ08ZZ Inspection of Upper Intestinal Tract, Via Natural or Artificial Opening Endoscopic (ICD-10-PCS; principal; 2020-08-20 15:30)
DX: K92.2 Gastrointestinal hemorrhage, unspecified (principal); R00.0 Tachycardia, unspecified; I95.9 Hypotension, unspecified; E86.0 Dehydration; D68.32 Hemorrhagic disorder due to extrinsic circulating anticoagulants; K51.911 Ulcerative colitis, unspecified with rectal bleeding; D62 Acute posthemorrhagic anemia; I51.81 Takotsubo syndrome; T45.515A Adverse effect of anticoagulants, initial encounter; F41.9 Anxiety disorder, unspecified; F32.9 Major depressive disorder, single episode, unspecified; E78.5 Hyperlipidemia, unspecified; I10 Essential (primary) hypertension; E03.9 Hypothyroidism, unspecified; Z66 Do not resuscitate; Z96.649 Presence of unspecified artificial hip joint; Z86.718 Personal history of other venous thrombosis and embolism; Z79.01 Long term (current) use of anticoagulants; Z79.899 Other long term (current) drug therapy; Z90.49 Acquired absence of other specified parts of digestive tract
CPT/HCPCS: 36415; 36430; 80048; 80053; 82607; 82728; 83540; 83615; 83690; 84443; 84466; 85014; 85018; 85025; 85027; 85045; 85651; 86140; 86850; 86900; 86901; 86920; 87040; 87631; 99285; 99291; A9270; J0330; J7120; P9016; P9040; 0202U